=== PATIENT | female | born 1955 | race Caucasian/White ===

== ENCOUNTER 2021-02-07 09:11 | Outpatient (CLI) | payer MEDICARE, MEDICAID | END 2021-02-07 09:12 | disposition home or self-care (01) | LOC: CSHWCC 09:11 | PROVIDERS: ATTEND Nurse Practitioner Family | DX: I87.312 Chronic venous hypertension (idiopathic) with ulcer of left lower extremity (principal); T86.821 Skin graft (allograft) (autograft) failure; I87.2 Venous insufficiency (chronic) (peripheral); L97.221 Non-pressure chronic ulcer of left calf limited to breakdown of skin; I82.492 Acute embolism and thrombosis of other specified deep vein of left lower extremity; I70.201 Unspecified atherosclerosis of native arteries of extremities, right leg; E78.2 Mixed hyperlipidemia; G90.09 Other idiopathic peripheral autonomic neuropathy; M72.6 Necrotizing fasciitis; M79.605 Pain in left leg; R60.0 Localized edema; Z85.05 Personal history of malignant neoplasm of liver; Z85.3 Personal history of malignant neoplasm of breast | CPT/HCPCS: 99213; G0463 ==